=== PATIENT | female | born 1965 ===

== ENCOUNTER 2020-11-04 06:47 | Day surgery (SDC) | payer OTHER ==
[~2020-11-04 06:47] MED LIST: HYZAAR 100-251 EACH PO; SYNTHROID50 MCG PO
[2020-11-04] MEDS ORDERED: ALEVE220 M1 PO (11:28)
[2020-11-04] MEDS ORDERED: ULTRACET PO (11:28)
[2020-11-04] MEDS ORDERED: CEFADROXIL500 MG PO (11:28)
== END 2020-11-04 14:55 | disposition home or self-care (01) ==
LOC: CIR.AMB 06:47
PROVIDERS: ATTEND Orthopaedic Surgery
DX: S83.231A Complex tear of medial meniscus, current injury, right knee, initial encounter (principal); S83.281A Other tear of lateral meniscus, current injury, right knee, initial encounter; M22.41 Chondromalacia patellae, right knee; E66.8 Other obesity; Z20.822 Contact with and (suspected) exposure to COVID-19